=== PATIENT | male | born 1960 | race Caucasian/White ===

== ENCOUNTER → 2020-08-30 14:10 | Outpatient (BNVA) | payer OTHER, SELFPAY | PROVIDERS: Visit Provider Physician Assistant | DX: Z76.89 Persons encountering health services in other specified circumstances (principal) ==

== ENCOUNTER → 2020-09-27 08:20 | Outpatient (BNVA) | payer OTHER, SELFPAY | PROVIDERS: PCP Anesthesiology; Referring Provider Anesthesiology; Visit Provider Physician Assistant | DX: Z76.89 Persons encountering health services in other specified circumstances (principal) ==

== ENCOUNTER 2020-10-16 10:43 | Outpatient (REF) | payer OTHER, SELFPAY ==
[2020-10-16 11:53] LABS: MANUAL DIFF FLAG NO
[2020-10-16 12:01] LABS: Basophils Percent Auto 0.3 % (0-2); Eosinophils Absolute Auto 0.1 X10*3/uL (0.0-0.4); Eosinophils Percent Auto 2.1 % (0-4); Hemoglobin 14.1 g/dl (14.0-18.0); Imm Gran Abs Auto 0.01 X10*3/uL (0.00-0.03); Imm Gran Pct Auto 0.3 % (0.0-0.4); Lymphocytes Absolute Auto 1.1 X10*3/uL (1.2-4.9); Lymphocytes Percent Auto 29.5 % (20-40); Mean Corpuscular HGB Conc 33.6 g/dl (31.0-36.0); Mean Corpuscular Hemoglobin 29.9 pg (27.0-33.0); Mean Platelet Volume 10.9 fL (9.4-12.4); Monocytes Absolute Auto 0.5 X10*3/uL (0.1-1.2); Monocytes Percent Auto 12.6 % (2-11); Neutrophils Absolute Auto 2.1 X10*3/uL (2.0-8.3); Neutrophils Percent Auto 55.2 % (45-73); Platelet Count 180 X10*3/uL (160-400); Red Blood Count 4.72 X10*6/uL (4.60-5.80); Red Cell Distribution Width 12.2 % (11.0-16.0); White Blood Count 3.7 X10*3/uL (4.8-10.8)
[2020-10-16 12:35] LABS: Alanine Aminotransferase 19 U/L (0-40); Albumin Level 4.3 g/dL (3.5-5.0); Alkaline Phosphatase 73 U/L (39-117); Anion Gap 12 (12-20); Aspartate Amino Transferase 22 U/L (5-37); Bilirubin Total 0.8 mg/dL (0.0-1.0); Blood Urea Nitrogen 21 mg/dL (9-16); C Reactive Protein 0.08 mg/dL (< or = 0.50); Calcium 8.9 mg/dL (8.4-10.2); Carbon Dioxide 28 mmol/L (22-29); Chloride 107 mmol/L (96-108); Cholesterol 189 mg/dL; Estimated Glomerular Filt Rate > 60; Glucose Fasting 79 mg/dL (60-99); HDL Cholesterol 39 mg/dL; Iron 88 mcg/dL (45-160); LDL Cholesterol Calculated 135 mg/dl; Percent Iron Saturation 32 % (15-50); Potassium 4.6 mmol/l (3.3-5.1); Sodium 142 mmol/L (135-145); Total Iron Binding Capacity 271 mcg/dL (228-428); Total Protein 6.7 g/dL (6.5-8.0); Triglycerides 75 mg/dL; Unsaturated Iron Binding 183 ug/dL
[2020-10-16 12:44] LABS: Ferritin 345 ng/mL (20-250); TSH reflex Free T4 0.72 mIU/mL (0.32-4.0); Vitamin D 25-OH Total 27.2 ng/mL (>30)
[2020-10-16 13:00] LABS: Folate > 20.0 ng/mL (> or = 4.0); Vitamin B12 405 pg/mL (200-900)
[2020-10-16 13:15] LABS: Estimated Average Glucose 97 mg/dL; Hemoglobin A1C 112.3939 umol/L
[2020-10-17 12:08] LABS: Insulin Level Total 2.7 uIU/mL
[2020-10-17 12:52] LABS: Calcium (PTHI) 9.3 mg/dL (8.6-10.3); PTHI 51 pg/mL (14-64)
[2020-10-19 02:57] LABS: Zinc 99 mcg/dL (60-130)
[2020-10-20 11:19] LABS: Vitamin B1 22 nmol/L (8-30)
[2020-10-20 17:57] LABS: Vitamin A 45 mcg/dL (38-98)
== END 2020-10-16 10:44 | disposition home or self-care (01) ==
LOC: HO.LAB 10:43
PROVIDERS: PCP Internal Medicine Geriatric Medicine; Visit Provider Physician Assistant
DX: E66.01 Morbid (severe) obesity due to excess calories (principal)
CPT/HCPCS: 36415; 80053; 80061; 82306; 82607; 82728; 82746; 83036; 83525; 83540; 83970; 84425; 84443; 84590; 84630; 85025; 86140

== ENCOUNTER → 2020-10-25 08:07 | Outpatient (BNVA) | payer OTHER, SELFPAY | PROVIDERS: PCP Anesthesiology; Referring Provider Anesthesiology; Visit Provider Dietitian, Registered | DX: Z76.89 Persons encountering health services in other specified circumstances (principal) ==

== ENCOUNTER → 2020-11-14 08:19 | Outpatient (BNVA) | payer OTHER, SELFPAY | PROVIDERS: PCP Anesthesiology; Visit Provider Physician Assistant | DX: Z76.89 Persons encountering health services in other specified circumstances (principal) ==

== ENCOUNTER → 2020-12-14 08:06 | Outpatient (BNVA) | payer OTHER, SELFPAY | PROVIDERS: PCP Anesthesiology; Visit Provider Dietitian, Registered ==

== ENCOUNTER → 2021-01-11 08:10 | Outpatient (BNVA) | payer OTHER, SELFPAY | PROVIDERS: PCP Anesthesiology; Visit Provider Physician Assistant ==

== ENCOUNTER → 2021-02-23 10:31 | Outpatient (BNVA) | payer OTHER, SELFPAY | PROVIDERS: PCP Internal Medicine Geriatric Medicine; Visit Provider Physician Assistant ==

== ENCOUNTER → 2021-05-03 16:18 | Outpatient (BNVA) | payer OTHER, SELFPAY | PROVIDERS: PCP Internal Medicine Geriatric Medicine; Visit Provider Physician Assistant ==

== ENCOUNTER → 2021-06-07 08:56 | Outpatient (BNVA) | payer OTHER, SELFPAY | PROVIDERS: PCP Internal Medicine Geriatric Medicine; Visit Provider Physician Assistant ==

== ENCOUNTER → 2021-07-26 08:09 | Outpatient (BNVA) | payer OTHER, SELFPAY | PROVIDERS: PCP Internal Medicine Geriatric Medicine; Visit Provider Dietitian, Registered | DX: E66.3 Overweight (principal); Z68.28 Body mass index [BMI] 28.0-28.9, adult | CPT/HCPCS: 97803 ==

== ENCOUNTER → 2021-10-15 08:57 | Outpatient (BNVA) | payer OTHER, SELFPAY | PROVIDERS: PCP Internal Medicine Geriatric Medicine; Visit Provider Physician Assistant ==

== ENCOUNTER 2022-02-20 15:49 | Outpatient (REF) | payer OTHER, SELFPAY ==
[2022-02-20 18:09] LABS: Vitamin D 25-OH Total 37.1 ng/mL (>30)
[2022-02-20 18:20] LABS: Folate 14.6 ng/mL (> or = 4.0); Vitamin B12 682 pg/mL (200-900)
[2022-02-21 15:02] LABS: Calcium (PTHI) 9.9 mg/dL (8.6-10.3); PTHI 50 pg/mL (16-77)
[2022-02-25 12:37] LABS: Vitamin B1 18 nmol/L (8-30)
[2022-02-25 15:32] LABS: Zinc 75 mcg/dL (60-130)
== END 2022-02-20 15:50 | disposition home or self-care (01) ==
LOC: HO.LAB 15:49
PROVIDERS: PCP Internal Medicine Geriatric Medicine; Visit Provider Physician Assistant
DX: E66.9 Obesity, unspecified (principal); Z68.30 Body mass index [BMI] 30.0-30.9, adult; Z71.3 Dietary counseling and surveillance
CPT/HCPCS: 36415; 82306; 82607; 82746; 83970; 84425; 84630